=== PATIENT | male | born 1985 | race African-American/Black ===

== ENCOUNTER 2016-07-23 08:45 | Emergency (ER) | payer OTHER, MEDICAID ==
--- NOTE | 2016-07-23 08:50 | EDPHY ---
H & P - Personal History Tetanus Vaccine Date: possibly in 2011 - Medical/Surgical History Hx Asthma: No Hx Chronic Respiratory Disease: No Hx Diabetes: No Hx Cardiac Disease: No Hx Renal Disease: No Hx Cirrhosis: No Hx Alcoholism: No Hx HIV/AIDS: No Hx Splenectomy or Spleen Trauma: No Other PMH: SURGICAL- LASER EYE SURGERY, R eye ligaments (age 5-6); medtronic placed quality assurance monitor body, heart investigational catheterization. pMHx: denies - Social History Smoking Status: Current every day smoker Time Seen by Provider: 07/23/16 08:46 HPI/ROS: CHIEF COMPLAINT: Palpitations post being placed under arrest HISTORY OF PRESENT ILLNESS: 30-year-old male arrives via ambulance complaining of palpitations, carpal pedal spasms after he was placed under arrest. He is currently in custody of police. He has a history of atrial fibrillation, Gavin- Parkinson-White, implanted tele monitor. Has Used cocaine, MDMA, LSD within the past 24 hours. Denies: Chest pain, dyspnea, headache, syncope, near syncope, back pain, abdominal pain, peripheral edema PRIMARY CARE PROVIDER:[facility] REVIEW OF SYSTEMS: A ten point review of systems was performed and is negative with the exception of the items mentioned in the HPI PAST MEDICAL & SURGICAL HISTORY: Atrial fibrillation, Parkinson's way, implanted tele monitor SOCIAL HISTORY: positive tobacco smoker. Admits to cocaine, MDMA, LSD use within the past 24 hours PHYSICAL EXAM (Prior to examination, patient consented to physical exam, hands were washed and my usual and customary physical exam procedures followed) 1) GENERAL: Well-developed, well-nourished, alert and oriented. Appears anxious . 2) HEAD: Normocephalic, atraumatic 3) HEENT: Pupils equal, round, reactive to light bilaterally. Sclera anicteric. 4) NECK: Full range of motion, no meningeal signs. No bruit 5) LUNGS: Clear auscultation bilaterally, no wheezes, no rhonchi, no retractions. 6) HEART: Regular rate and rhythm, no murmur, no heave, no gallop. 7) ABDOMEN: No guarding, no rebound, no focal tenderness, 8) MUSCULOSKELETAL: Carpal pedal spasms noted. No peripheral edema or discoloration. 9) BACK: No CVA tenderness 10) SKIN: No rash, no petechiae. 11) Psychiatric: Patient is oriented X 3, there is no agitation. DIFFERENTIAL DIAGNOSIS: In no particular order, including but not limited to palpitations, anxiety, myocardial ischemia, , pleural inflammation and pulmonary infectious causes. (Tyrel Person) Constitutional: Initial Vital Signs Temperature (C) 36.1 C 07/23/16 09:07 Heart Rate 64 07/23/16 09:07 Respiratory Rate 22 H 07/23/16 09:07 Blood Pressure 105/77 07/23/16 09:07 O2 Delivery Mode Room Air O2 (L/minute) 100 Allergies/Adverse Reactions: acetaminophen Allergy (Verified 12/15/15 19:07) beets Allergy (Uncoded 11/14/11 02:59) Home Medications: Medication Instructions Recorded No Medications [NO HOME 1 ea MISC 04/28/11 MEDICATIONS] Penicillin V Potassium [Pen Vk] 500 mg PO Q6H 10 Days 11/29/15 oxyCODONE HCL [Oxycodone HCl] 5 mg PO Q6-8PRN PRN #7 tablet 11/29/15 Medical Decision Making - Diagnostics Imaging Results: Imaging Impressions Chest X-Ray 07/23/16 09:32 Impression: Chest negative for acute cardiopulmonary abnormality. Images reviewed by myself (Tyrel Person) ED Course/Re-evaluation: 8:50 a.m.: Discussed the case with primary supervising physician Dr. Jalloh in the emergency department. (Tyrel Person) Other Provider: INDEPENDENT PHYSICIAN DOCUMENTATION I evaluated and participated in the management of the patient. I also evaluated the patient independently. My co-signature indicates that I have reviewed this chart and I agree with the findings and plan of care as documented. My personal H&P findings include: The patient presents to the ED after developing palpitations while being arrested. The patient does have a history of an arrhythmia. He currently has a loop monitor which has been placed. The patient did undergo an EP study performed at [facility] earlier in the year which demonstrated no evidence of an arrhythmia. The patient does report that he used cocaine several days ago. He denies any jessica chest pain or shortness of breath. EKG: Complete interpretation has been separately recorded in the [email or web address] archive. Summary impression: Sinus rhythm with changes consistent with likely early repolarization. There was slight change in the morphology compared to prior EKGs. ED course The patient was placed on a quality assurance monitor body without evidence of arrhythmia noted in the ED. The patient did have his loop device interrogated by the motorbike courier Dr. Villa and demonstrated only intermittent sinus tachycardia. The patient's troponin is normal. He has had no symptoms of chest pain or shortness of breath. At this point the patient will be cleared for transfer to [facility]. (Dave Jalloh) - Data Points Laboratory Results: Laboratory Results 07/23/16 08:50 07/23/16 08:50 07/23/16 07/23/16 08:50 08:50 WBC 12.24 10^3/uL H 10^3/uL (3.80-9.50) RBC 5.93 10^6/uL 10^6/uL (4.40-6.38) Hgb 17.0 g/dL g/dL (13.7-17.5) Hct 50.3 % % (40.0-51.0) MCV 84.8 fL fL (81.5-99.8) MCH 28.7 pg pg (27.9-34.1) MCHC 33.8 g/dL g/dL (32.4-36.7) RDW 13.4 % % (11.5-15.2) Plt Count 226 10^3/uL 10^3/uL (150-400) MPV 9.9 fL fL (8.7-11.7) Neut % (Auto) 79.0 % H % (39.3-74.2) Lymph % (Auto) 13.9 % L % (15.0-45.0) [place] % (Auto) 6.7 % % (4.5-13.0) Eos % (Auto) 0.0 % L % (0.6-7.6) Baso % (Auto) 0.2 % L % (0.3-1.7) Nucleat RBC Rel Count 0.0 % % (0.0-0.2) Absolute Neuts (auto) 9.66 10^3/uL H 10^3/uL (1.70-6.50) Absolute Lymphs (auto) 1.70 10^3/uL 10^3/uL (1.00-3.00) Absolute Monos (auto) 0.82 10^3/uL H 10^3/uL (0.30-0.80) Absolute Eos (auto) 0.00 10^3/uL L 10^3/uL (0.03-0.40) Absolute Basos (auto) 0.03 10^3/uL 10^3/uL (0.02-0.10) Absolute Nucleated RBC 0.00 10^3/uL 10^3/uL (0-0.01) Immature Gran % 0.2 % % (0.0-1.1) Immature Gran # 0.03 10^3/uL 10^3/uL (0.00-0.10) Sodium 143 mEq/L mEq/L (134-144) Potassium 3.8 mEq/L mEq/L (3.5-5.2) Chloride 103 mEq/L mEq/L (97-110) Carbon Dioxide 21 mEq/l L mEq/l (22-31) Anion Gap 19 mEq/L H mEq/L (8-16) BUN 15 mg/dL mg/dL (7-23) Creatinine 1.0 mg/dL mg/dL (0.7-1.3) Estimated GFR > 60 Glucose 70 mg/dL mg/dL (70-100) Calcium 10.3 mg/dL mg/dL (8.5-10.4) Troponin I < 0.012 ng/mL ng/mL (0-0.034) Departure - Departure Disposition: Home, Routine, Self-Care Clinical Impression: Heart palpitations Condition: Good Instructions: Palpitations (ED) Additional Instructions: You have been cleared for incarceration. If you developed chest pain, shortness of breath, palpitations, dizziness, alert the [facility] staff immediately and seek medical attention. Referrals: [facility] [Provider Group] - 2-3 days, call for appt.
--- NOTE | 2016-07-23 08:54 | CPEKG ---
Heart Rate: 62 RR Interval: 968 P-R Interval: 148 QRSD Interval: 84 QT Interval: 460 QTC Interval: 468 P [place]: 55 QRS [place]: 78 T Wave [place]: 60 EKG Severity - ABNORMAL ECG - EKG Impression: SINUS RHYTHM EKG Impression: CONSIDER LEFT VENTRICULAR HYPERTROPHY EKG Impression: ST ELEV, PROBABLE NORMAL EARLY REPOL PATTERN Electronically Signed By: Dave Jalloh 23-Jul-2016 09:21:53
[2016-07-23 09:10] VITALS: RESP 22
[2016-07-23 09:43] LABS: ANION GAP 19 mEq/L (8-16); CALCIUM 10.3 mg/dL (8.5-10.4); CARBON DIOXIDE 21 mEq/l (22-31); CHLORIDE 103 mEq/L (97-110); GLOMERULAR FILTRATION RATE > 60; GLUCOSE 70 mg/dL (70-100); POTASSIUM 3.8 mEq/L (3.5-5.2); SODIUM 143 mEq/L (134-144)
[2016-07-23 09:45] LABS: % IMMATURE GRANULYOCYTES 0.2 % (0.0-1.1); ABSOLUTE IMMATURE GRANULOCYTES 0.03 10^3/uL (0.00-0.10); ADD DIFF? NO; ADD MORPH? NO; ADD SCAN? NO; ATYPICAL LYMPHOCYTE FLAG 20 (0-99); FRAGMENT RBC FLAG 0 (0-99); HEMATOCRIT 50.3 % (40.0-51.0); LEFT SHIFT FLG 40 (0-99); LIPEMIA HEMOLYSIS FLAG 90 (0-99); MEAN CELL HEMOGLOBIN 28.7 pg (27.9-34.1); MEAN CELL HEMOGLOBIN CONCENTR. 33.8 g/dL (32.4-36.7); MEAN CELL VOLUME 84.8 fL (81.5-99.8); MEAN PLATELET VOLUME 9.9 fL (8.7-11.7); PLATELET CLUMPS FLAG 10 (0-99); PLATELET COUNT 226 10^3/uL (150-400); RED BLOOD CELL COUNT 5.93 10^6/uL (4.40-6.38); RED CELL DISTRIBUTION WIDTH 13.4 % (11.5-15.2)
[2016-07-23 09:55] LABS: TROPONIN I < 0.012 ng/mL (0-0.034)
[2016-07-23 10:19] VITALS: BP 125/67; PULSE 52; TEMP 98.1; O2SAT 100
== END 2016-07-23 10:21 | disposition home or self-care (01) ==
LOC: EDUNIT#
DX: R00.2 Palpitations (principal); F17.200 Nicotine dependence, unspecified, uncomplicated

== ENCOUNTER 2017-09-14 19:40 | Emergency (ER) | payer MEDICAID, OTHER ==
[2017-09-14] MEDS ORDERED: DIAZEPAM 5 MG TAB PO ONE (19:49)
--- NOTE | 2017-09-14 19:51 | EDPHY ---
H & P Stated Complaint: L SHOULDER PAIN AFTER SZ Time Seen by Provider: 09/14/17 19:43 HPI/ROS: CHIEF COMPLAINT: Left trapezius pain HISTORY OF PRESENT ILLNESS: Patient is a 31-year-old man who comes from [facility] after having a seizure complaining of left trapezius pain. He denies neck pain or shoulder pain or clavicular pain. He has had seizures since a head injury in June of this year. He states that he has only had 2 or 3. He was supposed to start Keppra few days ago but did not like how it fade him feel. Today he had a seizure described by intermediate as tonoclonic. This happened about an hour ago. No obvious trauma to his head neck or shoulder. Patient does not remember the episode. He does however complain of pain to the trapezius on the left. It hurts with elevation of his arm or with palpation. No weakness or paresthesias. REVIEW OF SYSTEMS: Constitutional: denies: chills, fever, recent illness, recent injury EENTM: denies: blurred vision, double vision, nose congestion Respiratory: denies: cough, shortness of breath Cardiac: denies: chest pain, irregular heart rate, lightheadedness, palpitations Gastrointestinal/Abdominal: denies: abdominal pain, diarrhea, nausea, vomiting, blood streaked stools Genitourinary: denies: dysuria, frequency, hematuria, pain Musculoskeletal: See HPI Skin: denies: lesions, rash, jaundice, bruising Neurological: denies: headache, numbness, paresthesia, tingling, dizziness, weakness Hematologic/Lymphatic: denies: blood clots, easy bleeding, easy bruising Immunologic/allergic: denies: HIV/AIDS, transplant EXAM: GENERAL: Well-appearing, well-nourished and in no acute distress. HEAD: Atraumatic, normocephalic. EYES: Pupils equal round and reactive to light, extraocular movements intact, sclera anicteric, conjunctiva are normal. ENT: TMs normal, nares patent, oropharynx clear without exudates. Moist mucous membranes. NECK: Normal range of motion, supple without lymphadenopathy or JVD. LUNGS: Breath sounds clear to auscultation bilaterally and equal. No wheezes rales or rhonchi. HEART: Regular rate and rhythm without murmurs, rubs or gallops. ABDOMEN: Soft, nontender, normoactive bowel sounds. No guarding, no rebound. No masses appreciated. BACK: No CVA tenderness, no spinal tenderness, step-offs or deformities EXTREMITIES: Pain with palpation or engagement of the left trapezius muscle. No tenderness to palpation of the clavicle. No step-off on the shoulder. Normal pulses and sensation distally. NEUROLOGICAL: Cranial nerves II through XII grossly intact. Normal speech, normal gait. 5/5 strength, normal movement in all extremities, normal sensation PSYCH: Normal mood, normal affect. SKIN: Warm, dry, normal turgor, no visible rashes or lesions. Source: Patient Exam Limitations: No limitations - Personal History Current Tetanus Diphtheria and Acellular Pertussis (TDAP): Yes Tetanus Vaccine Date: possibly in 2011 - Medical/Surgical History Hx Asthma: No Hx Chronic Respiratory Disease: No Hx Diabetes: No Hx Cardiac Disease: No Hx Renal Disease: No Hx Cirrhosis: No Hx Alcoholism: No Hx HIV/AIDS: No Hx Splenectomy or Spleen Trauma: No Other PMH: SURGICAL- LASER EYE SURGERY, R eye ligaments (age 5-6); medtronic placed gambling monitor, heart investigational catheterization, SZ, TBI. pMHx: Traumatic brain injury, seizures - Family History Significant Family History: No pertinent family hx - Social History Smoking Status: Current every day smoker Alcohol Use: Sober Constitutional: Initial Vital Signs Temperature (C) 36.8 C 09/14/17 19:45 Heart Rate 75 09/14/17 19:45 Respiratory Rate 16 09/14/17 19:45 Blood Pressure 140/92 H 09/14/17 19:45 O2 Sat (%) 97 09/14/17 19:45 O2 Delivery Mode Room Air Allergies/Adverse Reactions: acetaminophen Allergy (Verified 09/14/17 19:42) beets Allergy (Uncoded 09/14/17 19:42) Home Medications: Medication Instructions Recorded Diazepam [Valium 5 MG (*)] 5 mg PO TID PRN #10 tab 09/14/17 Keppra 09/14/17 Medical Decision Making - Diagnostics Imaging Results: Imaging Impressions Shoulder X-Ray 09/14/17 19:49 Impression: No acute findings in the shoulder. Imaging: Discussed imaging studies w/ scallop binder Radiologist ED Course/Re-evaluation: X-rays are reassuring. The patient is feeling much better after Valium. I will treat him with muscle relaxants and a sling. He is happy with this plan. We discussed rest and heat therapy as well. Differential Diagnosis: Partial list of the Differential diagnosis considered include but were not limited to; seizure, muscle strain, clavicle fracture, shoulder dislocation, AC separation and although unlikely based on the history and physical exam, I also considered injury, head injury. I discussed these differential diagnoses and the plan with the patient as well as the usual and expected course. The patient understands that the diagnosis is provisional and that in medicine we are not always correct and that further workup is often warranted. Usual and customary warnings were given. All of the patient's questions were answered. The patient was instructed to return to the emergency department should the symptoms at all worsen or return, otherwise to followup with the physician as we discussed. - Data Points Medications Given: Discontinued Medications Diazepam (Valium) 5 mg PO EDNOW ONE Stop: 09/14/17 19:50 Last Admin: 09/14/17 20:34 Dose: 5 mg Departure - Departure Disposition: Home, Routine, Self-Care Clinical Impression: Strain of left trapezius muscle Condition: Fair Instructions: Muscle Strain (ED) Additional Instructions: Take your anti seizure medicine as prescribed. Take the Valium as needed for muscle relaxation. Continue to use heat as well as sling as needed. May remove when not needed. Referrals: NONE *PRIMARY CARE P,. [Primary Care Provider] - As per Instructions Edvin Shi DO [Medical Doctor] - 5-7 days, if not improved Prescriptions: Diazepam [Valium 5 MG (*)] 5 mg PO TID PRN #10 tab PRN Reason: Spasms
[2017-09-14 21:08] VITALS: BP 138/88
== END 2017-09-14 21:02 | disposition home or self-care (01) ==
DX: S46.812A Strain of other muscles, fascia and tendons at shoulder and upper arm level, left arm, initial encounter (principal); X58.XXXA Exposure to other specified factors, initial encounter; Y92.149 Unspecified place in prison as the place of occurrence of the external cause; Y99.8 Other external cause status; Y93.89 Activity, other specified; F17.200 Nicotine dependence, unspecified, uncomplicated